=== PATIENT | male | born 1945 | race Caucasian/White ===

== ENCOUNTER 2018-10-30 07:44 | Day surgery (SDC) | payer MEDICARE, BC ==
[2018-10-30] MEDS ORDERED: Sodium Chloride 0.9% 10 ML Syringe FLUSH PRN (07:45)
[2018-10-30] MEDS ORDERED: Propofol 200 MG/20 ML SDV IV ONE (07:45)
[2018-10-30] MEDS ORDERED: Lactated Ringers 1,000 ML IV SCH (07:45)
[2018-10-30] MEDS ORDERED: Lidocaine 1% 30 ML SDV INJECT ONE (07:45)
[2018-10-30] MEDS ORDERED: Simethicone Drops 40 MG/0.6 ML 30 ML Bottle ONE (09:36)
--- NOTE | 2018-10-30 09:55 | PCM.OPNOTE ---
- General Post-Op/Procedure Note Date of Surgery/Procedure: 10/30/18 Operative Procedure(s): c scope with bx Findings: cecal polyp Pre Op Diagnosis: hx of colon polyps Post-Op Diagnosis: cecal polyp Anesthesia Technique: MARLEY Primary Surgeon: Torin Johnston Anesthesia Provider: Hayden Nichols Pathology: colon polyp Complications: None Condition: Good Free Text/Narrative:: see dictation
--- NOTE | 2018-10-30 10:46 | OR ---
DATE OF OPERATION: 10/30/2018 SURGEON: Torin Johnston MD PROCEDURE PERFORMED: Colonoscopy with cold forceps biopsy. PREOPERATIVE DIAGNOSIS: Colon cancer screening. POSTOPERATIVE DIAGNOSIS: Cecal polyp. INDICATIONS FOR PROCEDURE: This is a 72-year-old white male presenting for followup colonoscopy. He was offered and accepted same. DESCRIPTION OF OPERATION: After an excellent IV sedation was administered, digital rectal exam was performed. No marked abnormality was noted. Flexible colonoscope was inserted and advanced to the cecum. The prep was excellent. The following findings were noted. A small 5 mm lesion in the cecum, biopsied with cold biopsy forceps and sent for permanent. Otherwise, the ascending colon was unremarkable, transverse colon was unremarkable, and descending colon was unremarkable. Sigmoid and rectum, unremarkable. Colon was deflated. Scope was removed. The patient tolerated the procedure well and was taken to recovery in a good condition. Results by letter. /[id number] /[place]
== END 2018-10-30 10:33 | disposition home or self-care (01) ==
LOC: FB.SDS 07:44
PROVIDERS: ATTEND Surgery
DX: Z12.11 Encounter for screening for malignant neoplasm of colon (principal); D12.0 Benign neoplasm of cecum; E11.9 Type 2 diabetes mellitus without complications; E78.2 Mixed hyperlipidemia; Z68.29 Body mass index [BMI] 29.0-29.9, adult; Z86.010 Personal history of colon polyps; Z79.84 Long term (current) use of oral hypoglycemic drugs; Z79.51 Long term (current) use of inhaled steroids; Z79.82 Long term (current) use of aspirin; Z79.899 Other long term (current) drug therapy
CPT/HCPCS: 00812; 45380; 82962; 88305; A9270; J2001; J2704; J7120